=== PATIENT | male | born 1960 | race Caucasian/White ===

== ENCOUNTER → 2020-07-28 10:06 | Outpatient (POV) | payer BC, SELFPAY ==
[2020-07-28 10:54] VITALS: BP 138/85; PULSE 62; RESP 18; TEMP 36.8; O2SAT 98; BMI 31.2
--- NOTE | 2020-07-28 12:24 | HMH.PMCON ---
Assessment and Plan (1) Neck pain Status: Chronic Category: Medical Code(s): M54.2 - Cervicalgia (2) Low back pain Status: Chronic Category: Medical Code(s): M54.5 - Low back pain - Assessment and plan all Dx Assessment and Plan for all problems:: Patient's neck pain is worse at this time than his low back pain. We will schedule patient for an MRI of his cervical spine. He is tried conservative therapies of physical therapy along with ice and heat therapies and oral medications. We will get a copy of his lumbar MRI from [facility] as well as the MRI results of his cervical spine and discuss a further plan of care. We will see him in the [facility], as this is where he lives and he does not have transportation to the [facility]. He did have to have a bus transportation today. Patient has been instructed to contact clinic if he has any concerns before his next appointment. The patient and I specifically discussed risk factors for COVID19. These risks include, but are not limited to age greater than 60, heart or lung disease, diabetes, immunosuppression, and travel. We also discussed NSAIDs may worsen COVID19 infection or symptoms. Patient should not use NSAIDs to treat COVID19 signs or symptoms. Patient was also informed that any type of corticosteroid of any form (oral or injection) will decrease the patient's immune system response and may increase the likelihood of COVID19 infection and symptoms. Dr. Crawford has reviewed this note and agrees with this plan of care. This note was dictated using voice recognition software and make contain errors or omissions. HPI - Data of Consult Patient: new to practice Consult date: 07/28/20 Requesting Physician: Ai Snyder APRN Primary Care Provider: Alex Donato - Consult Narrative Reason for consult: Neck and low back pain History of present illness: Mr. Bucio is a 60 year old male who presents today for consultation for neck and low back pain. Patient says he has had this pain for many years. He is on multiple medications for comorbidities and says he is unsure what medications he takes for pain relief. Patient says his neck has a popping sensation with any type of movement. Patient says that his neck pain is nonradiating. He says he feels the pain worse when he is standing and washing dishes or moving his head from side to side. He also says he has low back pain that is nonradicular. He reports to have burning sensation from his knees to his feet. He has not had any recent imaging of his neck. He does have imaging of his lumbar spine from [facility]. Patient is in enrolled in physical therapy at this time and is not getting any relief. He is also trying ice and heat therapies. Patient lives in [facility] and says that he had to have bus transportation to get to this visit today. He is requesting to be transferred to the [facility]. Patient says he currently takes oral medications prescribed by Dr. 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 He rates his pain a 9 out of 10 today. Patient says he is currently undergoing a divorce after 40 years of marriage and he feels this is also contributing to a great deal of his pain. CC: Ai Snyder APRN [facility] History I have reviewed the patient's past medical history: Yes Medical History: Reports:: Hyperlipidemia, Hypertension Denies:: Cancer, Diabetes Mellitus Type 1, Diabetes Mellitus Type 2, MRSA *Have you ever received a pneumonia vaccine?: Yes *Have you received a flu vaccine this season?: Yes Other Medical History: Reports: Arthritis Amputation: No - *Social History Smoking Status: Current every day smoker Tobacco Type: cigarettes # Packs/Day (cigarettes): 1 Alcohol Intake: never *Occupational Status:: retired Housing: house Household Members: other *Travel in the last 8 weeks: None Family Hx:: Unable to obtain Review of Systems
== END ==
PROVIDERS: PCP Social Worker; Visit Provider Clinical Nurse Specialist Family Health
DX: M54.2 Cervicalgia (principal); M54.5 Low back pain
CPT/HCPCS: 99202